=== PATIENT | male | born 1975 | race Hispanic/Latino ===

== ENCOUNTER 2023-11-24 11:58 | Emergency (ER) | payer OTHER, SELFPAY ==
[2023-11-24] MEDS ORDERED: Acetaminophen 500 MG TAB ONE (12:34)
[2023-11-24] MEDS ORDERED: Lidocaine/Transparent Dressing 1 EACH KIT ONE (12:34)
[2023-11-24] MEDS ORDERED: Boostrix 0.5 ML (Tdap) VIAL (>/=7 yrs of age) ONE (12:35)
== END 2023-11-24 13:24 | disposition home or self-care (01) ==
LOC: BURERS 11:58
DX: S01.01XA Laceration without foreign body of scalp, initial encounter (principal); Z23 Encounter for immunization; W22.8XXA Striking against or struck by other objects, initial encounter
CPT/HCPCS: 12001; 90471; 90715